=== PATIENT | female | born 1945 | race Caucasian/White ===

== ENCOUNTER 2018-09-28 12:32 | Emergency (ER) | payer MEDICARE, MEDICAID ==
[2018-09-28 13:04] VITALS: BP 153/76
--- NOTE | 2018-09-28 13:30 | EDM.PDOC ---
ED HPI GENERAL MEDICAL PROBLEM - General Chief Complaint: Gastrointestinal Problem Stated Complaint: ABD PAIN Time Seen by Provider: 09/28/18 13:10 Source of Information: Reports: Patient, Family History Limitations: Reports: No Limitations - History of Present Illness INITIAL COMMENTS - FREE TEXT/NARRATIVE: 73-year-old female having intermittent abdominal pain in the right upper quadrant for the past several weeks. She has a history of a bowel obstruction, and her providers at [facility] assisted living her concerned she may be redeveloping the same condition. It seems to be worse after eating, and she has intermittent diarrhea. The pain was fairly strong this morning but much less at this time. No nausea or vomiting, shortness of breath, fever, back pain or urinary symptoms. Onset: Gradual Duration: Week(s): (Symptoms have recurred over the past several weeks) Location: Reports: Abdomen (Also in the upper right abdomen and right anterior lower chest) Right Upper Abdominal Pain Score (Numeric/FACES): 2 - Related Data Allergies Allergy/AdvReac Type Severity Reaction Status Date / Time ibuprofen [From Motrin] Allergy Rash Verified 08/31/18 17:38 Penicillins Allergy Rash Verified 08/31/18 12:54 Home Meds: Home Meds Acetaminophen [Tylenol] 650 mg PO Q4H PRN #100 tablet 07/22/16 [Rx] Docusate Sodium [Colace] 100 mg PO BID PRN #60 cap 07/22/16 [Rx] Multivit with Iron,Minerals [Compete] 1 each PO DAILY #30 tablet 07/22/16 [Rx] LORazepam [Ativan] 1 mg PO QAM 08/31/18 [History] LORazepam [Ativan] 2 mg PO BEDTIME 08/31/18 [History] Omeprazole 40 mg PO DAILY 08/31/18 [History] LORazepam [Ativan] 2 mg PO BEDTIME tablet 09/02/18 [Rx] Past Medical History - Past Health History Medical/Surgical History: Denies Medical/Surgical History HEENT History: Reports: None Cardiovascular History: Reports: CAD Gastrointestinal History: Reports: GERD Musculoskeletal History: Reports: Arthritis Psychiatric History: Reports: Addiction, Anxiety, Dementia, OCD, Other (See Below) Other Psychiatric History: alcohol abuse, alcoholic dementia, mixed obsessional thought and acts Hematologic History: Reports: Other (See Below) Other Hematologic History: pancytopenia - Infectious Disease History Infectious Disease History: Reports: Chicken Pox, Measles, Mumps, Rubella - Past Surgical History HEENT Surgical History: Reports: Tonsillectomy Social & Family History - Tobacco Use Smoking Status *Q: Never Smoker - Caffeine Use Caffeine Use: Reports: Coffee Other Caffeine Use: decaf coffee - Recreational Drug Use Recreational Drug Use: No - Living Situation & Occupation Living situation: Reports: Extended Care Facility (Resident of [facility] ED ROS GENERAL - Review of Systems Review Of Systems: See Below Constitutional: Denies: Fever, Chills HEENT: Reports: No Symptoms Respiratory: Denies: Shortness of Breath, Cough Cardiovascular: Reports: Other (Right anterior lower chest wall discomfort with palpation) GI/Abdominal: Reports: Abdominal Pain, Diarrhea. Denies: Nausea, Vomiting : Reports: No Symptoms Musculoskeletal: Reports: Other (Chest wall pain) Skin: Reports: No Symptoms Neurological: Reports: Other (Hard of hearing). Denies: Headache ED EXAM, GENERAL - Physical Exam Exam: See Below Exam Limited By: No Limitations General Appearance: Alert, No Apparent Distress Eye Exam: Bilateral Eye: EOMI (No jaundice) Throat/Mouth: Normal Inspection Head: Atraumatic Respiratory/Chest: No Respiratory Distress, Lungs Clear GI/Abdominal: Normal Bowel Sounds, Soft, Tender (I can respect to some tenderness over the extreme right upper quadrant to palpation but she has no guarding or rebound, also some tenderness across the lower right anterior chest wall) Neurological: Alert, Oriented Psychiatric: Normal Affect, Normal Mood Skin Exam: No: Rash (No rash over sore area) Course - Vital Signs Last Recorded V/S: Last Vital Signs Temp 96.9 F 09/28/18 13:05 Pulse 100 09/28/18 13:05 Resp 14 09/28/18 13:05 BP 153/76 H 09/28/18 13:05 Pulse Ox 95 09/28/18 13:05 - Orders/Labs/Meds Labs: Laboratory Tests 09/28/18 09/28/18 09/28/18 Range/Units 13:39 13:39 13:39 WBC 6.1 (4.5-11.0) K/uL RBC 4.30 (3.30-5.50) M/uL Hgb 13.1 D (12.0-15.0) g/dL Hct 40.6 (36.0-48.0) % MCV 94 (80-98) fL MCH 31 (27-31) pg MCHC 32 (32-36) % Plt Count 155 (150-400) K/uL Neut % (Auto) 61 (36-66) % Lymph % (Auto) 27 (24-44) % [place] % (Auto) 8 H (2-6) % Eos % (Auto) 3 (2-4) % Baso % (Auto) 1 (0-1) % Sodium 138 L (140-148) mmol/L Potassium 4.2 (3.6-5.2) mmol/L Chloride 100 (100-108) mmol/L Carbon Dioxide 31 (21-32) mmol/L Anion Gap 11.2 (5.0-14.0) mmol/L BUN 12 D (7-18) mg/dL Creatinine 0.8 (0.6-1.0) mg/dL Est Cr Clr Drug Dosing 58.70 mL/min Estimated GFR (MDRD) > 60 (>60) Glucose 106 (74-106) mg/dL Calcium 9.4 (8.5-10.1) mg/dL Total Bilirubin 0.3 (0.2-1.0) mg/dL AST 25 (15-37) U/L ALT 35 (12-78) U/L Alkaline Phosphatase 80 (46-116) U/L Total Protein 7.1 (6.4-8.2) g/dL Albumin 3.6 (3.4-5.0) g/dL Globulin 3.5 (2.3-3.5) g/dL Albumin/Globulin Ratio 1.0 L (1.2-2.2) Lipase 190 (73-393) U/L - Re-Assessments/Exams Free Text/Narrative Re-Assessment/Exam: 09/28/18 13:29 CBC, CMP and lipase were obtained, we will likely have to run her through the CT scan to rule out bowel obstruction for them to be comfortable to take her back. 09/28/18 15:08 Labs are very reassuring, CT scan however shows a few dilated small bowel loops but no obvious obstruction focus. She likely has some adhesions that are causing intermittent partial obstruction. Discussed with and her power of warehouse order picker and caretakers, she is going to stick with soft foods and liquids for the next 2 days and recheck with Dr. Young on Wednesday to discuss options. She can return anytime if worsening. Departure - Departure Time of Disposition: 15:27 Disposition: Home, Self-Care 01 Condition: Good Clinical Impression: Abdominal pain - Discharge Information Instructions: Abdominal Pain, Adult Referrals: PCP,None [Primary Care Provider] - Forms: ED Department Discharge Additional Instructions: Recheck with Dr. Young in the clinic on Wednesday, call the clinic tomorrow to set up an appointment for a recheck from an ER visit. Liquids and soft foods will help, and return anytime if worsening or significant pain.
--- NOTE | 2018-09-28 14:38 | CRLCT ---
INDICATION: Upper abdominal pain. History of obstruction. TECHNIQUE: Noncontrast CT of the abdomen and pelvis. COMPARISON: August 31, 2018. FINDINGS: Mild thickening of the distal esophagus at the GE junction may be transient. This is less evident when compared to the prior study. The previous identified distal small bowel obstruction has clearly improved. There still several minimally distended fluid filled small bowel loops within the lower the abdomen and pelvis but without an obvious transition point. The appearance is not compatible with maria teresa small-bowel obstruction today. There is however the suggestion of small bowel malrotation which was suggested previously. The unenhanced liver, spleen, pancreas, adrenal glands, and kidneys are within normal limits. There are however calcified splenic granulomas. Surgically absent gallbladder. Vascular calcification within a normal caliber abdominal aorta and iliac arteries. There is no evidence for appendicitis or diverticulitis. The uterus and ovaries are likely surgically absent. Dense calcification in the left hemipelvis image 98 likely a phlebolith. The urinary bladder is unremarkable. The included skeleton is negative for acute fracture. There is a mild rotatory lumbar scoliotic curvature convex towards the right with multilevel degenerative disc disease. The included lung bases are clear. Coronary artery calcification. IMPRESSION: 1. Mild distention of a few small bowel loops within the mid to lower abdomen. This has clearly improved when compared to August 31, 2018. The appearance is nonspecific without maria teresa obstruction or ileus. 2. Surgically absent gallbladder. Surgical absent uterus and likely the ovaries as well. Please note that all CT scans at this facility use dose modulation, iterative reconstruction, and/or weight-based dosing when appropriate to reduce radiation dose to as low as reasonably achievable. Dictated by Guanakito Sanchez MD @ Sep 28 2018 2:27PM Signed by Dr. Guanakito Sanchez @ Sep 28 2018 2:37PM
== END 2018-09-28 15:27 | disposition home or self-care (01) ==
LOC: JP.ED 12:32
DX: R10.11 Right upper quadrant pain (principal); K21.9 Gastro-esophageal reflux disease without esophagitis; Z88.8 Allergy status to other drugs, medicaments and biological substances; Z88.0 Allergy status to penicillin; Z79.899 Other long term (current) drug therapy
CPT/HCPCS: 36415; 74176; 80053; 83690; 85025; 99284-25

== ENCOUNTER 2020-10-16 08:59 | Emergency (ER) | payer MEDICARE, MEDICAID ==
--- NOTE | 2020-10-16 09:10 | EDM.PDOC ---
ED HPI GENERAL MEDICAL PROBLEM - General Chief Complaint: Neuro Symptoms/Deficits Stated Complaint: MEDICAL VIA [facility] Time Seen by Provider: 10/16/20 09:08 Source of Information: Reports: EMS, Old Records History Limitations: Reports: Other (dementia) - History of Present Illness INITIAL COMMENTS - FREE TEXT/NARRATIVE: 75 yo female with dementia who is a resident of a local [facility] was sent to the ER this morning via EMS due to transient slurred speech. By the time of EMS arrival the slurring had resolved and a regular heart rhythm was noted. No focal deficits noted by EMS en route. According to [facility], where she resides, there was some R arm weakness reported by Lawanda and she was having some trouble with ambulation. Tells me she had some transient chest pain as well. Onset: Today, Sudden Onset Date: 10/16/20 Duration: Minutes:, Resolved Prior to Arrival Location: Reports: Face, Upper Extremity, Right Quality: Reports: Other (mild chest tightness) Severity: Mild Improves with: Reports: Other (time) Worsens with: Reports: Other (unknown) Context: Reports: Other (See HPI) Associated Symptoms: Reports: Chest Pain (mild, transient, tightness), Weakness (transient of R arm) Treatments SPARKER AND PATCHER: Reports: Other (see below) (none) - Related Data Allergies Allergy/AdvReac Type Severity Reaction Status Date / Time ibuprofen [From Motrin] Allergy Rash Verified 10/16/20 09:08 Penicillins Allergy Rash Verified 10/16/20 09:08 Home Meds: Home Meds Docusate Sodium [Colace] 100 mg PO BID PRN #60 cap 07/22/16 [Rx] Multivit with Iron,Minerals [Compete] 1 each PO DAILY #30 tablet 07/22/16 [Rx] LORazepam [Ativan] 1 mg PO ASDIRECTED 08/31/18 [History] LORazepam [Ativan] 1 mg PO QAM 08/31/18 [History] LORazepam [Ativan] 2 mg PO BEDTIME tablet 09/02/18 [Rx] Acetaminophen [Tylenol] 650 mg PO QID 10/16/20 [History] Escitalopram Oxalate [Lexapro] 10 mg PO DAILY 10/16/20 [History] polyethylene glycoL 3350 [MiraLAX] 17 gm PO DAILY 10/16/20 [History] risperiDONE [Risperdal] 0.25 mg PO BID 10/16/20 [History] Past Medical History - Past Health History Medical/Surgical History: Denies Medical/Surgical History HEENT History: Reports: None Cardiovascular History: Reports: CAD Gastrointestinal History: Reports: GERD Musculoskeletal History: Reports: Arthritis Psychiatric History: Reports: Addiction, Anxiety, Dementia, OCD, Other (See Below) Other Psychiatric History: alcohol abuse, alcoholic dementia, mixed obsessional thought and acts Hematologic History: Reports: Other (See Below) Other Hematologic History: pancytopenia - Infectious Disease History Infectious Disease History: Reports: Chicken Pox, Measles, Mumps, Rubella - Past Surgical History HEENT Surgical History: Reports: Tonsillectomy Social & Family History - Caffeine Use Caffeine Use: Reports: Coffee Other Caffeine Use: decaf coffee - Living Situation & Occupation Living situation: Reports: Extended Care Facility (Resident of [facility].) ED ROS GENERAL - Review of Systems Review Of Systems: See Below Constitutional: Reports: No Symptoms HEENT: Reports: No Symptoms Respiratory: Reports: No Symptoms Cardiovascular: Reports: Chest Pain (mild, transient, tightness) Endocrine: Reports: No Symptoms GI/Abdominal: Reports: No Symptoms : Reports: No Symptoms Musculoskeletal: Reports: No Symptoms Skin: Reports: No Symptoms Neurological: Reports: Difficulty Walking, Weakness (R arm transiently), Other (transient R facial droop) Psychiatric: Reports: No Symptoms ED EXAM, NEURO - Physical Exam Exam: See Below Exam Limited By: No Limitations General Appearance: Alert, WD/WN, No Apparent Distress Eye Exam: Bilateral Eye: EOMI, Normal Inspection, PERRL Ears: Normal External Exam, Normal Canal, Hearing Grossly Normal Nose: Normal Inspection, No Blood Throat/Mouth: Normal Inspection, Normal Lips, Normal Oropharynx, Normal Voice, No Airway Compromise Head Exam: Atraumatic, Normocephalic Neck: Normal Inspection Respiratory/Chest: No Respiratory Distress, Lungs Clear, Normal Breath Sounds, No Accessory Muscle Use Cardiovascular: Regular Rate, Rhythm, No Edema GI/Abdominal: Normal Bowel Sounds, Soft, Non-Tender, No Distention Neurological: Alert, Normal Mood/Affect, CN II-XII Intact, No Motor/Sensory Deficits, Other (no focal neuro deficits noted.). No: Oriented x 3 (oriented x 2(normal for her)) Back Exam: Normal Inspection. No: CVA Tenderness (R), CVA Tenderness (L) Extremities: Normal Inspection, Normal Range of Motion, Non-Tender, No Pedal Edema. No: Pedal Edema Psychiatric: Normal Affect, Normal Mood Skin Exam: Warm, Dry, Intact, Normal Color, No Rash Course - Vital Signs Last Recorded V/S: Last Vital Signs Temp 36.6 C 10/16/20 09:13 Pulse 64 10/16/20 10:28 Resp 14 10/16/20 10:28 BP 153/72 H 10/16/20 10:28 Pulse Ox 95 10/16/20 10:28 - Orders/Labs/Meds Orders: Active Orders 24 hr Category Date Time Status Cardiac Monitoring [RC] .As Directed Care 10/16/20 09:25 Active Labs: Laboratory Tests 10/16/20 10/16/20 10/16/20 Range/Units 09:40 09:40 10:25 WBC 5.9 (4.5-11.0) K/uL RBC 4.37 (3.30-5.50) M/uL Hgb 13.2 (12.0-15.0) g/dL Hct 41.2 (36.0-48.0) % MCV 94 (80-98) fL MCH 30 (27-31) pg MCHC 32 (32-36) % Plt Count 156 (150-400) K/uL Sodium 141 (140-148) mmol/L Potassium 4.4 (3.6-5.2) mmol/L Chloride 103 (100-108) mmol/L Carbon Dioxide 27 (21-32) mmol/L Anion Gap 11.3 (5.0-14.0) mmol/L BUN 13 (7-18) mg/dL Creatinine 0.9 (0.6-1.0) mg/dL Est Cr Clr Drug Dosing 50.90 mL/min Estimated GFR (MDRD) > 60 (>60) Glucose 114 H (74-106) mg/dL Calcium 9.1 (8.5-10.1) mg/dL Troponin I < 0.017 (0.000-0.056) ng/mL Urine Color Yellow (YELLOW) Urine Appearance Clear (CLEAR) Urine pH 6.5 (5.0-8.0) Ur Specific [place] 1.020 (1.008-1.030) Urine Protein Negative (NEGATIVE) mg/dL Urine Glucose (UA) Negative (NEGATIVE) mg/dL Urine Ketones Negative (NEGATIVE) mg/dL Urine Occult Blood Negative (NEGATIVE) Urine Nitrite Negative (NEGATIVE) Urine Bilirubin Negative (NEGATIVE) Urine Urobilinogen 0.2 (0.2-1.0) EU/dL Ur Leukocyte Esterase Negative (NEGATIVE) Amorphous Sediment Rare Urine Mucus Rare Meds: Medications Discontinued Medications Generic Name Dose Route Start Last Admin Trade Name Cole PRN Reason Stop Dose Admin Aspirin 325 mg 10/16/20 09:41 10/16/20 09:44 Aspirin 325 Mg Tab.Ec PO 10/16/20 09:42 325 mg ONETIME ONE Administration - Re-Assessments/Exams Free Text/Narrative Re-Assessment/Exam: 10/16/20 10:56 No recurrence of her symptoms while in the ER, will start her on ASA 81 mg daily going forward for prophylaxis vs. TIA. Departure - Departure Time of Disposition: 11:00 Disposition: Home, Self-Care 01 Condition: Fair Clinical Impression: TIA (transient ischemic attack) - Discharge Information *PRESCRIPTION DRUG MONITORING PROGRAM REVIEWED*: Not Applicable *COPY OF PRESCRIPTION DRUG MONITORING REPORT IN PATIENT CARMELITA: Not Applicable Instructions: Transient Ischemic Attack, [id number] Referrals: PCP,None [Primary Care Provider] - Forms: ED Department Discharge Additional Instructions: Starting tomorrow give with a meal Ecotrin 81 mg daily. Continue any other medications as before. Return here as needed. F/U with primary care is recommended. Sepsis Event Note (ED) - Focused Exam Vital Signs: Vital Signs Temp Pulse Resp BP Pulse Ox 10/16/20 10:28 64 14 153/72 H 95 10/16/20 09:13 36.6 C 67 16 125/70 93 L - My Orders Last 24 Hours: My Active Orders 10/16/20 09:25 Cardiac Monitoring [RC] .As Directed - Assessment/Plan Last 24 Hours: My Active Orders 10/16/20 09:25 Cardiac Monitoring [RC] .As Directed
[2020-10-16] MEDS: Aspirin 325 MG Tab.EC PO ONE (09:44)
[2020-10-16 10:32] VITALS: BP 153/72; PULSE 64
== END 2020-10-16 11:15 | disposition home or self-care (01) ==
LOC: JP.ED 08:59
DX: G45.9 Transient cerebral ischemic attack, unspecified (principal); F03.90 Unspecified dementia, unspecified severity, without behavioral disturbance, psychotic disturbance, mood disturbance, and anxiety; I25.10 Atherosclerotic heart disease of native coronary artery without angina pectoris; Z88.6 Allergy status to analgesic agent; Z88.0 Allergy status to penicillin; Z79.899 Other long term (current) drug therapy
CPT/HCPCS: 36415; 80048; 81001; 84484; 85027; 99285; A9270

== ENCOUNTER 2021-03-12 18:22 | Emergency (ER) | payer MEDICARE, MEDICAID ==
--- NOTE | 2021-03-12 18:47 | EDM.PDOC ---
ED HPI GENERAL MEDICAL PROBLEM - General Chief Complaint: General Stated Complaint: FALL Time Seen by Provider: 03/12/21 18:40 Source of Information: Reports: Patient, RN Notes Reviewed History Limitations: Reports: No Limitations - History of Present Illness INITIAL COMMENTS - FREE TEXT/NARRATIVE: 75-year-old female presents emergency department today complaint of right flank pain, she injured herself earlier today when she tripped and fell in her bedroom she is not sure what she tripped over but she ended up hitting the side post on her bed she now is experiencing pain in her flank does have some bruising there but no difficulty breathing, exam is somewhat limited as she is demented Right Middle Abdomen Pain Score (Numeric/FACES): 4 - Related Data Allergies Allergy/AdvReac Type Severity Reaction Status Date / Time ibuprofen [From Motrin] Allergy Rash Verified 10/16/20 09:08 Penicillins Allergy Rash Verified 10/16/20 09:08 Home Meds: Home Meds Docusate Sodium [Colace] 100 mg PO BID PRN #60 cap 07/22/16 [Rx] Multivit with Iron,Minerals [Compete] 1 each PO DAILY #30 tablet 07/22/16 [Rx] LORazepam [Ativan] 1 mg PO ASDIRECTED 08/31/18 [History] LORazepam [Ativan] 1 mg PO QAM 08/31/18 [History] LORazepam [Ativan] 2 mg PO BEDTIME tablet 09/02/18 [Rx] Acetaminophen [Tylenol] 650 mg PO QID 10/16/20 [History] polyethylene glycoL 3350 [MiraLAX] 17 gm PO DAILY 10/16/20 [History] Aspirin 81 mg PO DAILY 03/12/21 [History] QUEtiapine [SEROquel] 50 mg PO BID 03/12/21 [History] Past Medical History Cardiovascular History: Reports: CAD Gastrointestinal History: Reports: GERD Musculoskeletal History: Reports: Arthritis Psychiatric History: Reports: Addiction, Anxiety, Dementia, OCD, Other (See Below) Other Psychiatric History: alcohol abuse, alcoholic dementia, mixed obsessional thought and acts Hematologic History: Reports: Other (See Below) Other Hematologic History: pancytopenia - Infectious Disease History Infectious Disease History: Reports: Chicken Pox, Measles, Mumps, Rubella - Past Surgical History HEENT Surgical History: Reports: Tonsillectomy Social & Family History - Family History Family Medical History: No Pertinent Family History - Tobacco Use Tobacco Use Status *Q: Never Tobacco User - Caffeine Use Caffeine Use: Reports: Coffee Other Caffeine Use: decaf coffee - Living Situation & Occupation Living situation: Reports: Extended Care Facility (Resident of [facility].) ED ROS GENERAL - Review of Systems Review Of Systems: See Below : Reports: Flank Pain Skin: Reports: Bruising ED EXAM, GENERAL - Physical Exam Exam: See Below Exam Limited By: No Limitations General Appearance: Alert, WD/WN, No Apparent Distress Respiratory/Chest: No Respiratory Distress, Lungs Clear, Normal Breath Sounds, No Accessory Muscle Use, Chest Non-Tender Cardiovascular: Regular Rate, Rhythm, No Murmur GI/Abdominal: Soft, Tender (Right flank with bruising) Course - Vital Signs Last Recorded V/S: Last Vital Signs Temp 96.8 F L 03/12/21 18:24 Pulse 82 03/12/21 19:35 Resp 16 03/12/21 18:24 BP 118/63 03/12/21 19:35 Pulse Ox 94 L 03/12/21 18:24 - Orders/Labs/Meds Orders: Active Orders 24 hr Category Date Time Status Chest 2V [CR] Urgent Exams 03/12/21 18:44 Taken Meds: Medications Discontinued Medications Generic Name Dose Route Start Last Admin Trade Name Cole PRN Reason Stop Dose Admin Ketorolac Tromethamine 30 mg 03/12/21 18:45 03/12/21 19:14 Ketorolac 30 Mg/Ml Sdv IM 03/12/21 18:46 30 mg ONETIME ONE Administration Departure - Departure Time of Disposition: 20:41 Disposition: DC/[facility] to [facility] Condition: Fair Clinical Impression: Contusion, flank Qualifiers: Encounter type: initial encounter Qualified Code(s): S30.1XXA - Contusion of abdominal wall, initial encounter - Discharge Information Instructions: Contusion, [id number] Referrals: Livier Calderon LIN[employer] DEV[employer] ENGINEER [Primary Care Provider] - Forms: ED Department Discharge Additional Instructions: Use Tylenol or Motrin as needed for pain control, please followup with your primary care provider in 3-5 days if not better, please call return to the emergency department with worsening of symptoms. Sepsis Event Note (ED) - Evaluation Sepsis Screening Result: No Definite Risk - Focused Exam Vital Signs: Vital Signs Temp Pulse Resp BP Pulse Ox 03/12/21 19:35 82 118/63 03/12/21 18:24 96.8 F L 86 16 139/67 94 L - My Orders Last 24 Hours: My Active Orders 03/12/21 18:44 Chest 2V [CR] Urgent - Assessment/Plan Last 24 Hours: My Active Orders 03/12/21 18:44 Chest 2V [CR] Urgent Plan: Assessment Acuity = acute Site and laterality = right flank contusion Etiology = secondary to fall Manifestations = none Location of injury = Home Lab values = chest x-ray I did review films myself I cannot appreciate any acute process, the official read from radiology is pending Plan She had good improvement with the Toradol, plan is discharged home use Tylenol as needed for pain control. This note was dictated using zkipster voice recognition software please call with any questions on syntax or grammar.
[2021-03-12] MEDS: Ketorolac 30 MG/ML SDV IM ONE (19:14)
[2021-03-12 20:53] VITALS: BP 125/61; PULSE 77
--- NOTE | 2021-03-13 08:58 | CR ---
CHEST: 2 view CLINICAL HISTORY:Fall right-sided chest pain COMPARISON:2019 FINDINGS: Lungs are emphysematous. There is some generalized interstitial prominence which is felt to be chronic. Heart size and pulmonary vascularity are normal. There are atherosclerotic changes in the aorta. There is no pneumothorax or pleural effusion. Rib evaluation is limited. No fracture seen. Impression: No acute cardiopulmonary process Emphysematous changes
== END 2021-03-12 21:35 ==
LOC: JP.ED 18:22
DX: S30.1XXA Contusion of abdominal wall, initial encounter (principal); Z88.0 Allergy status to penicillin; Z88.8 Allergy status to other drugs, medicaments and biological substances; W01.190A Fall on same level from slipping, tripping and stumbling with subsequent striking against furniture, initial encounter; Y92.003 Bedroom of unspecified non-institutional (private) residence as the place of occurrence of the external cause
CPT/HCPCS: 71046; 96372; 99284; J1885

== ENCOUNTER 2023-07-14 20:53 | Emergency (ER) | payer MEDICARE, MEDICAID ==
[2023-07-14 21:10] LABS: BASOPHILS ABSOLUTE AUTO 0.06 K/uL (0.00-0.10); BASOPHILS PERCENT AUTO 0.9 % (0.1-1.3); EOSINOPHILS ABSOLUTE AUTO 0.39 K/uL (0.00-0.40); HEMATOCRIT 36.5 % (34.3-46.0); HEMOGLOBIN 12.3 g/dL (11.2-15.5); IMMATURE GRAN ABSOLUTE AUTO 0.01 K/uL (0.00-0.23); IMMATURE GRAN PERCENT AUTO 0.2 % (0.0-0.7); LYMPHOCYTES ABSOLUTE AUTO 2.35 K/uL (0.8-3.3); LYMPHOCYTES PERCENT AUTO 36.1 % (11.4-47.7); MEAN CORPUSCULAR HEMOGLOBIN 31.2 pg (31.6-35.5); MEAN CORPUSCULAR HGB CONC 33.7 g/dL (31.6-35.5); MEAN CORPUSCULAR VOLUME 92.6 fL (81.4-99.0); MONOCYTES ABSOLUTE AUTO 0.66 K/uL (0.20-0.90); MONOCYTES PERCENT AUTO 10.1 % (3.3-12.6); NEUTROPHILS ABSOLUTE AUTO 3.04 K/uL (1.0-7.6); NEUTROPHILS PERCENT AUTO 46.7 % (40.0-78.1); PLATELET COUNT,PLT 138 K/uL (130-375); RED BLOOD CELL COUNT 3.94 M/uL (3.77-5.24); WHITE BLOOD CELL COUNT,WBC 6.5 K/uL (3.2-11.0)
[2023-07-14 21:19] VITALS: BP 130/74; PULSE 75
[2023-07-14 21:46] LABS: CORONAVIRUS COVID-19 NAA NEGATIVE (NEGATIVE); INFLUENZA A NAA NEGATIVE (NEGATIVE); INFLUENZA B NAA NEGATIVE (NEGATIVE); RESPIRATORY SYNCYTIAL VIR NAA NEGATIVE (NEGATIVE)
[2023-07-14 21:48] LABS: ALANINE AMINOTRANSFERASE,ALT 30 U/L (12-78); ALBUMIN 3.4 g/dL (3.4-5.0); ALKALINE PHOSPHATASE 89 U/L (46-116); ANION GAP 12.2 mmol/L (5.0-14.0); ASPARTATE AMNIOTRANSFERASE,AST 27 U/L (15-37); BILIRUBIN TOTAL 0.2 mg/dL (0.2-1.0); BLOOD UREA NITROGEN,BUN 18 mg/dL (7-18); C-REACTIVE PROTEIN < 0.50 mg/dL (<0.50); CALCIUM 8.6 mg/dL (8.5-10.1); CARBON DIOXIDE,CO2 26 mmol/L (21-32); CHLORIDE,CL 100 mmol/L (100-108); CREATININE 1.1 mg/dL (0.6-1.0); EST CRCL DRUG DOSING (CG) 35.48 mL/min; ESTIMATED GFR 51 mL/min (>60); GLUCOSE RANDOM 108 mg/dL (74-106); POTASSIUM,K 4.2 mmol/L (3.6-5.2); PROTEIN TOTAL,TP 6.9 g/dL (6.4-8.2); SODIUM,NA 134 mmol/L (140-148)
[2023-07-14 22:26] LABS: BILIRUBIN,URINE NEGATIVE (NEGATIVE); COLOR,URINE YELLOW (YELLOW); GLUCOSE,URINE NEGATIVE (NEGATIVE); KETONES,URINE NEGATIVE (NEGATIVE); LEUKOCYTE ESTERASE,URINE NEGATIVE (NEGATIVE); NITRITE,URINE NEGATIVE (NEGATIVE); OCCULT BLOOD,URINE NEGATIVE (NEGATIVE); PH,URINE 5.5 (5.0-8.0); PROTEIN,URINE NEGATIVE (NEGATIVE); UROBILINOGEN,URINE 0.2 EU/dL (0.2-1.0)
[2023-07-14 22:30] LABS: AMORPHOUS SEDIMENT,URINE NOT SEEN; APPEARANCE,URINE CLOUDY (CLEAR); BACTERIA,URINE MODERATE; EPITHELIAL CELLS,URINE FEW; MUCUS,URINE NOT SEEN; RBC,URINE 0-5 (0-5)
[2023-07-14] MEDS ORDERED: Ciprofloxacin 500 MG Tab PO ONE (22:40)
== END 2023-07-14 23:04 | disposition home or self-care (01) ==
LOC: JP.ED 20:53
DX: K59.01 Slow transit constipation (principal); N30.00 Acute cystitis without hematuria; I25.10 Atherosclerotic heart disease of native coronary artery without angina pectoris; Z20.822 Contact with and (suspected) exposure to COVID-19; Z79.82 Long term (current) use of aspirin
CPT/HCPCS: 0241U; 36415; 71046; 74019; 80053; 81001; 83735; 84484; 85025; 86140; 87077; 87086; 93005; 99285; A9270; C1758

== ENCOUNTER 2024-08-05 19:15 | Emergency (ER) | payer MEDICARE, MEDICAID ==
[2024-08-05 19:33] VITALS: BP 139/64; PULSE 77
[2024-08-05 19:37] LABS: BASOPHILS ABSOLUTE AUTO 0.03 K/uL (0.00-0.10); BASOPHILS PERCENT AUTO 0.3 % (0.1-1.3); EOSINOPHILS ABSOLUTE AUTO 0.07 K/uL (0.00-0.40); EOSINOPHILS PERCENT AUTO 0.8 % (0.0-5.4); HEMATOCRIT 37.4 % (34.3-46.0); HEMOGLOBIN 12.7 g/dL (11.2-15.5); IMMATURE GRAN ABSOLUTE AUTO 0.03 K/uL (0.00-0.23); IMMATURE GRAN PERCENT AUTO 0.3 % (0.0-0.7); LYMPHOCYTES ABSOLUTE AUTO 0.97 K/uL (0.8-3.3); LYMPHOCYTES PERCENT AUTO 10.4 % (11.4-47.7); MEAN CORPUSCULAR VOLUME 94.2 fL (81.4-99.0); MONOCYTES ABSOLUTE AUTO 0.37 K/uL (0.20-0.90); NEUTROPHILS ABSOLUTE AUTO 7.86 K/uL (1.0-7.6); NEUTROPHILS PERCENT AUTO 84.2 % (40.0-78.1); PLATELET COUNT,PLT 144 K/uL (130-375); RED BLOOD CELL COUNT 3.97 M/uL (3.77-5.24); WHITE BLOOD CELL COUNT,WBC 9.3 K/uL (3.2-11.0)
[2024-08-06 05:39] LABS: APPEARANCE,URINE CLEAR (CLEAR); BILIRUBIN,URINE NEGATIVE (NEGATIVE); COLOR,URINE YELLOW (YELLOW); GLUCOSE,URINE NEGATIVE (NEGATIVE); KETONES,URINE NEGATIVE (NEGATIVE); LEUKOCYTE ESTERASE,URINE NEGATIVE (NEGATIVE); NITRITE,URINE NEGATIVE (NEGATIVE); OCCULT BLOOD,URINE MODERATE (NEGATIVE); PH,URINE 5.5 (5.0-8.0); PROTEIN,URINE NEGATIVE (NEGATIVE); UROBILINOGEN,URINE 0.2 EU/dL (0.2-1.0)
[2024-08-06 05:47] LABS: AMORPHOUS SEDIMENT,URINE NOT SEEN; BACTERIA,URINE MANY; EPITHELIAL CELLS,URINE FEW; MUCUS,URINE NOT SEEN; RBC,URINE 0-5 (0-5); WBC,URINE 0-5 (0-5)
[2024-08-06 05:55] LABS: ANION GAP 15.4 mmol/L (5.0-14.0); CREATININE 1.2 mg/dL (0.6-1.0); EST CRCL DRUG DOSING (CG) 34.42 mL/min; POTASSIUM,K 3.4 mmol/L (3.6-5.2)
[2024-08-06 06:13] LABS: BASOPHILS ABSOLUTE AUTO 0.06 K/uL (0.00-0.10); BASOPHILS PERCENT AUTO 0.6 % (0.1-1.3); EOSINOPHILS PERCENT AUTO 1.8 % (0.0-5.4); HEMATOCRIT 38.3 % (34.3-46.0); HEMOGLOBIN 13.2 g/dL (11.2-15.5); IMMATURE GRAN PERCENT AUTO 0.2 % (0.0-0.7); LYMPHOCYTES ABSOLUTE AUTO 2.18 K/uL (0.8-3.3); MEAN CORPUSCULAR HEMOGLOBIN 32.4 pg (31.6-35.5); MEAN CORPUSCULAR HGB CONC 34.5 g/dL (31.6-35.5); MEAN CORPUSCULAR VOLUME 93.9 fL (81.4-99.0); MONOCYTES ABSOLUTE AUTO 0.73 K/uL (0.20-0.90); MONOCYTES PERCENT AUTO 6.7 % (3.3-12.6); NEUTROPHILS PERCENT AUTO 70.7 % (40.0-78.1); PLATELET COUNT,PLT 148 K/uL (130-375); RED BLOOD CELL COUNT 4.08 M/uL (3.77-5.24); WHITE BLOOD CELL COUNT,WBC 10.9 K/uL (3.2-11.0)
[2024-08-06 06:15] LABS: IMMATURE GRAN ABSOLUTE AUTO 0.02 K/uL (0.00-0.23)
== END 2024-08-06 08:45 ==
LOC: JP.ED 19:15
DX: K64.9 Unspecified hemorrhoids (principal); I25.10 Atherosclerotic heart disease of native coronary artery without angina pectoris; Z88.0 Allergy status to penicillin; Z88.6 Allergy status to analgesic agent; Z79.82 Long term (current) use of aspirin; Z79.899 Other long term (current) drug therapy
CPT/HCPCS: 36415; 80048; 81001; 82272; 85025; 99283; 99285

== ENCOUNTER 2024-08-19 19:37 | Emergency (ER) | payer MEDICARE, MEDICAID ==
[2024-08-19 20:32] LABS: A/G RATIO 1.1 (1.2-2.2); ALANINE AMINOTRANSFERASE,ALT 43 U/L (12-78); ALBUMIN 3.7 g/dL (3.4-5.0); ALKALINE PHOSPHATASE 76 U/L (46-116); ASPARTATE AMNIOTRANSFERASE,AST 38 U/L (15-37); BILIRUBIN TOTAL 0.3 mg/dL (0.2-1.0); BLOOD UREA NITROGEN,BUN 18 mg/dL (7-18); C-REACTIVE PROTEIN 0.55 mg/dL (<0.50); CALCIUM 8.5 mg/dL (8.5-10.1); CARBON DIOXIDE,CO2 25 mmol/L (21-32); CHLORIDE,CL 103 mmol/L (100-108); CREATININE 0.9 mg/dL (0.6-1.0); ESTIMATED GFR 64 mL/min (>60); GLUCOSE RANDOM 99 mg/dL (74-106); POTASSIUM,K 4.1 mmol/L (3.6-5.2); SODIUM,NA 139 mmol/L (140-148)
[2024-08-19 20:37] LABS: ANION GAP 15.1 mmol/L (5.0-14.0)
[2024-08-19 21:04] LABS: BASOPHILS ABSOLUTE AUTO 0.03 K/uL (0.00-0.10); BASOPHILS PERCENT AUTO 0.5 % (0.1-1.3); EOSINOPHILS ABSOLUTE AUTO 0.17 K/uL (0.00-0.40); EOSINOPHILS PERCENT AUTO 2.7 % (0.0-5.4); HEMATOCRIT 35.7 % (34.3-46.0); HEMOGLOBIN 12.3 g/dL (11.2-15.5); IMMATURE GRAN PERCENT AUTO 0.2 % (0.0-0.7); LYMPHOCYTES ABSOLUTE AUTO 1.74 K/uL (0.8-3.3); LYMPHOCYTES PERCENT AUTO 27.4 % (11.4-47.7); MEAN CORPUSCULAR HEMOGLOBIN 32.5 pg (31.6-35.5); MEAN CORPUSCULAR HGB CONC 34.5 g/dL (31.6-35.5); MEAN CORPUSCULAR VOLUME 94.4 fL (81.4-99.0); MONOCYTES ABSOLUTE AUTO 0.61 K/uL (0.20-0.90); MONOCYTES PERCENT AUTO 9.6 % (3.3-12.6); NEUTROPHILS ABSOLUTE AUTO 3.78 K/uL (1.0-7.6); NEUTROPHILS PERCENT AUTO 59.6 % (40.0-78.1); PLATELET COUNT,PLT 125 K/uL (130-375); RED BLOOD CELL COUNT 3.78 M/uL (3.77-5.24); WHITE BLOOD CELL COUNT,WBC 6.3 K/uL (3.2-11.0)
[2024-08-19 21:05] LABS: IMMATURE GRAN ABSOLUTE AUTO 0.01 K/uL (0.00-0.23)
[2024-08-19 21:26] VITALS: BP 133/62; PULSE 87
[2024-08-19] MEDS: QUEtiapine 100 MG Tab PO SCH (23:52)
[2024-08-20] MEDS: Glycerin 2.1 GM Supp RECTAL ONE (00:13)
[2024-08-20] MEDS ORDERED: QUEtiapine 100 MG Tab PO SCH (21:00)
== END 2024-08-20 07:27 | disposition home or self-care (01) ==
LOC: JP.ED 19:37
DX: K59.00 Constipation, unspecified (principal); I25.10 Atherosclerotic heart disease of native coronary artery without angina pectoris; Z88.0 Allergy status to penicillin; Z88.6 Allergy status to analgesic agent; Z79.82 Long term (current) use of aspirin; Z79.899 Other long term (current) drug therapy
CPT/HCPCS: 36415; 74018; 80053; 85025; 86140; 99284; A9270

== ENCOUNTER 2025-01-05 19:02 | Emergency (ER) | payer MEDICARE, MEDICAID ==
[2025-01-05 20:52] VITALS: BP 141/78; PULSE 77
== END 2025-01-05 21:50 | disposition home or self-care (01) ==
LOC: JP.ED 19:02
DX: R51.9 Headache, unspecified (principal); M54.2 Cervicalgia; I25.10 Atherosclerotic heart disease of native coronary artery without angina pectoris; K21.9 Gastro-esophageal reflux disease without esophagitis; Z88.0 Allergy status to penicillin; Z88.8 Allergy status to other drugs, medicaments and biological substances; Z79.899 Other long term (current) drug therapy; Z79.82 Long term (current) use of aspirin; W01.198A Fall on same level from slipping, tripping and stumbling with subsequent striking against other object, initial encounter; Y93.89 Activity, other specified
CPT/HCPCS: 99283